=== PATIENT | female | born 1990 | race Caucasian/White ===

== ENCOUNTER 2018-07-29 11:37 | Day surgery (SDC) | payer OTHER ==
[~2018-07-29] VITALS: Ht 167.6 cm; Wt 104.6 kg
[2018-07-29] MEDS ORDERED: LACTATED RINGERS 1,000 ML IV SCH (12:28)
[2018-07-29] MEDS ORDERED: BIOTIN PO (12:38)
[2018-07-29] MEDS ORDERED: TUMERIC PO (12:38)
[2018-07-29] MEDS ORDERED: VITAMIN K PO (12:38)
[2018-07-29] MEDS ORDERED: MULT-658 PO (12:38)
[2018-07-29] MEDS ORDERED: VITAMIN D PO (12:38)
[2018-07-29] MEDS ORDERED: MAGNESIUM PO (12:38)
[2018-07-29] MEDS ORDERED: TYSABRI IV (12:38)
[2018-07-29] MEDS ORDERED: FISH OIL PO (12:38)
[2018-07-29] MEDS ORDERED: CO Q-10 PO (12:38)
[2018-07-29] MEDS ORDERED: LEVO100T5 PO (12:38)
[2018-07-29] MEDS ORDERED: VITAMIN B PO (12:38)
[2018-07-29 12:41] VITALS: BP 128/90
[2018-07-29 12:41] LABS: HCG UR SG 1.027 (1.003-1.030)
[2018-07-29] MEDS ORDERED: FENTANYL PF 100 MCG/2ML ONE (13:05)
[2018-07-29] MEDS ORDERED: MIDAZOLAM 1 MG/ML, 2ML ONE (13:05)
[2018-07-29] MEDS ORDERED: BUPIVACAINE/PF 0.25% ONE (13:21)
[2018-07-29] MEDS ORDERED: HEPARIN 5,000 UNITS/ML, 1ML ONE (13:21)
[2018-07-29] MEDS ORDERED: HEPARIN 1,000 UNITS/ML, 10ML ONE (13:21)
[2018-07-29] MEDS ORDERED: BACITRACIN 50,000 UNIT ONE (13:21)
[2018-07-29] MEDS ORDERED: SCOPOLAMINE PATCH, 1.5MG PATCH.TD72 TD ONE (13:24)
[2018-07-29] MEDS ORDERED: KETOROLAC 30 MG/1 ML ONE (13:35)
[2018-07-29] MEDS ORDERED: PROPOFOL 50 ML ONE (13:38)
[2018-07-29] MEDS ORDERED: METOCLOPRAMIDE 5 MG/ML, 2ML ONE (13:45)
[2018-07-29] MEDS ORDERED: ONDANSETRON 2MG/ML, 2ML IV PRN (14:00)
[2018-07-29] MEDS ORDERED: EPHEDRINE 50 MG/ML, 1ML IM PRN (14:00)
[2018-07-29] MEDS ORDERED: ACETAMINOPHEN 325 MG TABLET PO PRN (14:00)
[2018-07-29] MEDS ORDERED: MIDAZOLAM 1 MG/ML, 2ML IV PRN (14:00)
[2018-07-29] MEDS ORDERED: PROMETHAZINE 25 MG/ML, 1ML IV PRN (14:00)
[2018-07-29] MEDS ORDERED: HYDROcodone/APAP 7.5-325MG/15ML UDC PO PRN (14:00)
[2018-07-29] MEDS ORDERED: hydrALAzine 20 MG/ML, 1ML IV PRN (14:00)
[2018-07-29] MEDS ORDERED: FENTANYL PF 100 MCG/2ML IV PRN (14:00)
[2018-07-29] MEDS ORDERED: ALBUTEROL/IPRATROPIUM 2.5MG/0.5MG, 3 ML NPPB PRN (14:00)
[2018-07-29] MEDS ORDERED: PROPOFOL 10 MG/ML, 20ML ONE (14:20)
[2018-07-29] MEDS ORDERED: DEXAMETHASONE 4 MG/ML, 1ML ONE (14:20)
[2018-07-29] MEDS ORDERED: ONDANSETRON 2MG/ML, 2ML ONE (14:20)
[2018-07-29] MEDS ORDERED: CEFAZOLIN 1,000 MG ONE (14:20)
== END 2018-07-29 16:45 | disposition home or self-care (01) ==
LOC: OUT 11:37
PROVIDERS: ATTEND Surgery
DX: Z45.2 Encounter for adjustment and management of vascular access device (principal); G35 Multiple sclerosis; E03.9 Hypothyroidism, unspecified; K21.9 Gastro-esophageal reflux disease without esophagitis; Z90.49 Acquired absence of other specified parts of digestive tract; Z88.8 Allergy status to other drugs, medicaments and biological substances
CPT/HCPCS: 36561; 77001; 81025; C1788; J0690; J1100; J1644; J1885; J2250; J2405; J2704; J2765; J3010; J3490; J7120